=== PATIENT | female | born 1990 | race Hispanic/Latino ===

== ENCOUNTER 2020-05-25 02:15 | Emergency (ER) | payer SELFPAY ==
[2020-05-25 03:20] LABS: BHCG - Serum Negative (NEGATIVE); Pregs Control Background? CLEAR/WHITE (CLR/WHITE); Pregs Control Bar Appear? YES (CONTROL BAR)
[2020-05-25 03:23] LABS: ALT (SGPT) 21 U/L (8-55); AST (SGOT) 27 U/L (5-34); Albumin 3.7 g/dL (3.5-5.0); Alkaline Phosphatase 71 U/L (40-110); Anion Gap 13 mmol/L (10-20); BUN (Urea Nitrogen) 14 mg/dL (7.0-18.7); Bilirubin, Total 0.2 mg/dL (0.2-1.2); CK (CPK) 31 U/L (29-168); Calc. Creatinine Clearance 0 mL/min (70-130); Calcium 8.2 mg/dL (7.8-10.44); Carbon Dioxide 24 mmol/L (22-29); Chloride 103 mmol/L (98-107); Globulin 3.5 g/dL (2.4-3.5); Glucose 98 mg/dL (70-105); Hemoglobin 13.8 g/dL (12.0-16.0); Mean Corpuscular HGB CONC 35.9 g/dL (32.0-36.0); Mean Corpuscular Hemoglobin 36.2 pg (27.0-31.0); Mean Platelet Volume 7.3 fL (7.4-10.4); Platelet Count 174 thou/uL (130-400); Potassium 3.8 mmol/L (3.5-5.1); Protein, Total 7.2 g/dL (6.0-8.3); RBC Distribution Width 12.6 % (11.5-14.5); Red Blood Cell (RBC) Count 3.81 mill/uL (4.20-5.40); Sodium 136 mmol/L (136-145); White Blood Cell (WBC) Count 8.1 thou/uL (4.8-10.8)
[2020-05-25 03:34] LABS: Band 1 % (5-11); Eosinophils 4 % (0-10); Lymphocytes 57 % (21-51); MDiff Complete? YES; Monocytes 13 % (0-10); Neutrophil 21 % (42-75); Reactive Lymphocytes 2 % (0-10)
[2020-05-25 04:36] LABS: Bilirubin Negative (Negative); Blood, Urine Negative (Negative); Clarity Clear (Clear); Glucose, Urine (Dipstick) Normal (Negative); Ketone, Urine Negative (Negative); Leukocyte Negative Leu/uL (Negative); Nitrite Negative (Negative); Protein, Urine (Dipstick) Negative (Neg-Trace); Specific Gravity, Urine 1.014 (1.002-1.036); Urobilinogen Normal mg/dL (Less than 2)
== END 2020-05-25 07:40 | disposition home or self-care (01) ==
LOC: ERS 02:15
DX: G40.509 Epileptic seizures related to external causes, not intractable, without status epilepticus (principal); T42.0X5A Adverse effect of hydantoin derivatives, initial encounter; Z79.899 Other long term (current) drug therapy
CPT/HCPCS: 36415; 80053; 80185; 81003; 82550; 84703; 85025; 93005; 96365; Q2009

== ENCOUNTER 2020-06-28 12:08 | Outpatient (CLI) | payer OTHER ==
[2020-06-28] MEDS ORDERED: Magnevist 469MG/ML 20 ML VIAL ONE (14:48)
--- NOTE | 2020-06-28 15:24 | MRI ---
MRI of thebrain: 06/28/2020 COMPARISON:None available HISTORY:Seizure disorder TECHNIQUE: Multiplanar multisequence MR imaging of thebrain with and without contrast using a seizure protocol Findings:The diffusion weighted imaging demonstrates no evidence for acute infarction. No midline shift or mass effect. There is no ventricular enlargement. There is a posterior fossa superior midline lesion which follows the signal intensity of CSF on all p ulse sequences. This lesion measures 2.4 cm in AP dimension and demonstrates no enhancement. 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 The postcontrast imaging demonstrates no abnormal enhancement within the brain parenchyma. Arterial flow voids at the axial level of the skull base appear grossly unremarkable on the T2-weight ed imaging. The hippocampi appear grossly unremarkable with symmetric size structure and signal intensity on the thin section coronal imaging. There is an oval T2 hyperintense nonenhancing lesion in the region of the pineal gland measuring 1.4- 1.5 m, most consistent with a pineal cyst. IMPRESSION: Incidental findings as detailed above. No acute findings are seen.
--- NOTE | 2020-06-28 15:45 | EEG ---
DATE OF SERVICE: DESCRIPTION OF THE RECORD: Background activity is a medium amplitude, 9 hertz alpha frequency. The patient remained awake throughout the study. Hyperventilation and photic stimulation were unremarkable. No epileptiform features were seen. IMPRESSION: This is a normal awake EEG. Job ID: [id number]
== END 2020-06-28 12:09 | disposition home or self-care (01) ==
LOC: MRI 12:08
PROVIDERS: ATTEND Nurse Practitioner Acute Care
DX: G40.909 Epilepsy, unspecified, not intractable, without status epilepticus (principal); G93.89 Other specified disorders of brain
CPT/HCPCS: 70553; 95816; A9579

== ENCOUNTER 2021-04-04 13:27 | Outpatient (CLI) | payer OTHER | END 2021-04-04 13:28 | disposition home or self-care (01) | LOC: SCSMRI 13:27 | PROVIDERS: ATTEND Nurse Practitioner Acute Care | DX: G40.909 Epilepsy, unspecified, not intractable, without status epilepticus (principal) | CPT/HCPCS: 70553 ==